=== PATIENT | female | born 1965 | race Caucasian/White ===

== ENCOUNTER 2017-09-25 07:11 | Day surgery (SDC) | payer OTHER ==
[2017-09-25] MEDS ORDERED: Sodium Chloride 0.9% 10 ML Syringe FLUSH PRN (07:15)
[2017-09-25] MEDS: Lactated Ringers 1,000 ML IV SCH ×2 (07:58→09:27)
[2017-09-25] MEDS ORDERED: Dexamethasone 4 MG/ML 5 ML MDV IVPUSH ONE (08:30)
[2017-09-25] MEDS ORDERED: Propofol 200 MG/20 ML SDV IV ONE (08:30)
[2017-09-25] MEDS ORDERED: Phenylephrine 1% 10 MG/ML SDV IV ONE (08:30)
[2017-09-25] MEDS ORDERED: diphenhydrAMINE 50 MG/ML SDV IV ONE (08:30)
[2017-09-25] MEDS ORDERED: Ondansetron 4 MG/2 ML SDV IVPUSH ONE (08:30)
[2017-09-25] MEDS ORDERED: Lactated Ringers 1,000 ML IV ONE (08:30)
[2017-09-25] MEDS ORDERED: Furosemide 40 MG/4 ML VIAL IV ONE (08:30)
--- NOTE | 2017-09-25 09:13 | PCM.OPNOTE ---
- General Post-Op/Procedure Note Date of Surgery/Procedure: 09/25/17 Operative Procedure(s): c scope with bx Findings: transverse colon polyp Pre Op Diagnosis: screening Post-Op Diagnosis: tranverse colon polyp Anesthesia Technique: MAC Primary Surgeon: Abdi Radford Anesthesia Provider: Shamar Adan Pathology: transverse colon polyp Complications: None Condition: Good Free Text/Narrative:: see dictation
[2017-09-25] MEDS ORDERED: methylPREDNISolone Sodium Succinate 40 MG/1 ML SDV IVPUSH ONE (10:11)
--- NOTE | 2017-09-25 10:25 | PCM.SURGPN ---
- General Info Date of Service: 09/25/17 - Review of Systems Systems Review Comment:: pt in recovery developed some erythema of her skin as well as some swelling of her hands. low blood pressur Anesthesia did give her some iv benadryl pressors as well as some lasix for the edema. she also received a fluid bolus. she is complaining of some bladder discomfort but is not able to go. - Patient Data Vitals - Most Recent: Last Vital Signs Temp 36.2 C 09/25/17 07:39 Pulse 40 L 09/25/17 10:15 Resp 16 09/25/17 10:15 BP 113/60 09/25/17 10:15 Pulse Ox 100 09/25/17 10:15 Weight - Most Recent: 63.503 kg Lab Results Last 24 Hrs: Laboratory Results - last 24 hr 09/25/17 Range/Units 07:45 Urine HCG, Qual Negative (NEGATIVE) Med Orders - Current: Current Medications Lactated Ringer's (Ringers, Lactated) 1,000 mls @ 125 mls/hr IV ASDIRECTED JOHN Last Admin: 09/25/17 09:27 Dose: 125 mls/hr Sodium Chloride (Saline Flush) 10 ml FLUSH ASDIRECTED PRN PRN Reason: Keep Vein Open Discontinued Medications Methylprednisolone Sodium Succinate (Solu-Medrol) 40 mg IVPUSH ONETIME ONE Stop: 09/25/17 10:12 - Exam General: Alert, Mild Distress, Moderate Distress Lungs: Clear to Auscultation, Normal Respiratory Effort. No: Rales, Wheezing Cardiovascular: Regular Rate, Regular Rhythm GI/Abdominal Exam: Normal Bowel Sounds, Soft Extremities: Other (edema hands with feet.) Skin: Warm, Other (some erythema feet, hands and face ) - Problem List & Annotations (1) Hyperplastic polyp of transverse colon SNOMED Code(s): 20521493 Code(s): K63.5 - POLYP OF COLON Status: Acute Current Visit: Yes (2) Allergic reaction caused by a drug SNOMED Code(s): 722113314 Code(s): T78.40XA - ALLERGY, UNSPECIFIED, INITIAL ENCOUNTER Status: Acute Current Visit: Yes Qualifiers: Encounter type: initial encounter Qualified Code(s): T78.40XA - Allergy, unspecified, initial encounter - Problem List Review Problem List Initiated/Reviewed/Updated: Yes - My Orders Last 24 Hours: Active Orders 24 hr Category Date Time Status Patient Status [ADT] Routine ADT 09/25/17 07:15 Ordered Patient to Empty Bladder [RC] ASDIRECTED Care 09/25/17 07:15 Active Ready for Discharge [RC] PER UNIT ROUTINE Care 09/25/17 09:11 Active Urinary Catheter Assessment [RC] QSHIFT Care 09/25/17 10:20 Ordered Urinary Catheter Insertion [Insert Urinary Catheter] [ Care 09/25/17 10:30 Ordered OM.PC] Q24H Verify Patient Consent Obtain [RC] ASDIRECTED Care 09/25/17 07:15 Active Nothing Per Oral Diet [DIET] Diet 09/25/17 Breakfast Ordered Lactated Ringers [Ringers, Lactated] 1,000 ml Med 09/25/17 07:15 Active IV ASDIRECTED Sodium Chloride 0.9% [Saline Flush] Med 09/25/17 07:15 Active 10 ml FLUSH ASDIRECTED PRN Peripheral IV Insertion Adult [OM.PC] Routine Oth 09/25/17 07:15 Ordered Resuscitation Status Routine Resus Stat 09/24/17 11:43 Ordered Medication Orders Lactated Ringer's (Ringers, Lactated) 1,000 mls @ 125 mls/hr IV ASDIRECTED JOHN Last Admin: 09/25/17 09:27 Dose: 125 mls/hr Infusion: 09/25/17 09:27 Dose: 125 mls/hr Admin: 09/25/17 07:58 Dose: 125 mls/hr Sodium Chloride (Saline Flush) 10 ml FLUSH ASDIRECTED PRN PRN Reason: Keep Vein Open - Assessment Assessment (Free Text/Narrative):: appears to be responding to benadryl. - Plan Plan (Free Text/Narrative):: I+O cath for bladder issue. solumedrol iv follow by a dose pack. anticipate her going home
--- NOTE | 2017-09-25 11:58 | OR ---
DATE OF OPERATION: 09/25/2017 SURGEON: Abdi Radford MD PROCEDURE PERFORMED: Colonoscopy with cold forceps biopsy. PREOPERATIVE DIAGNOSIS: Need for screening C-scope. POSTOPERATIVE DIAGNOSIS: Transverse colon polyp. INDICATIONS FOR PROCEDURE: This is a 52-year-old white female who presents for a screening colonoscopy. She was offered and accepted same. DESCRIPTION OF OPERATION: After an excellent IV sedation was administered, digital rectal exam was performed. No marked abnormality was noted. Flexible colonoscope was inserted and advanced without difficulty to the cecum. The prep was excellent. The following findings were noted. Ascending colon, unremarkable. Transverse colon, small hyperplastic appearing lesion, biopsied with cold biopsy forceps and sent for permanent. Descending colon, unremarkable. Sigmoid and rectum, unremarkable. Colon was deflated. Scope was removed. The patient tolerated the procedure well. Results by letter and followup colonoscopy depending on clinical findings. /[id number]/GLENDY
== END 2017-09-25 11:54 | disposition home or self-care (01) ==
LOC: FB.SDS 07:11
PROVIDERS: ATTEND Surgery
DX: Z12.11 Encounter for screening for malignant neoplasm of colon (principal); K63.5 Polyp of colon; Z88.2 Allergy status to sulfonamides; Z88.8 Allergy status to other drugs, medicaments and biological substances; J30.81 Allergic rhinitis due to animal (cat) (dog) hair and dander; Z87.891 Personal history of nicotine dependence
CPT/HCPCS: 45380; 81025; 88305; J1100; J1200; J1940; J2370; J2405; J2704; J2920; J7120